=== PATIENT | male | born 1960 | race Caucasian/White ===

== ENCOUNTER → 2016-11-03 | Outpatient (CLI) | payer BC, OTHER ==
[2016-11-03 13:26] LABS: COMPLETE YES; HEMATOCRIT 37.9 % (42-52); IG% 0.2 %; LYMPH % 31.3 %; LYMPH ABS # 1.47 K/uL (1.2-3.4); MEAN CELL VOLUME 92.4 fL (80-100); MEAN CORPUSCULAR HEMOGLOBIN 30.5 pg (25-34); MEAN PLATELET VOLUME 10.4 fL (7.4-10.4); MONO % 11.3 %; NEUT % 54.2 %; PLATELET COUNT 198 K/uL (130-400)
[2016-11-03 13:29] LABS: ALT/SGPT 25 U/L (12-78); BLOOD UREA NITROGEN 18 mg/dl (7-18); BUN/CREATININE RATIO 15.3 (10-20); CARBON DIOXIDE 29 mmol/L (21-32); CHLORIDE 106 mmol/L (98-107); CHOLESTEROL 180 mg/dl (0-200); GLUCOSE 89 mg/dl (70-99); POTASSIUM 4.3 mmol/L (3.5-5.1); SODIUM 139 mmol/L (136-145)
[2016-11-03 13:34] LABS: HDL CHOLESTEROL 61 mg/dl; TOTAL IRON BINDING CAPACITY 317 mcg/dl (250-450); TRIGLYCERIDES 172 mg/dl (0-150); VERY LOW DENSITY LIPOPROT CALC 34 mg/dl
== END | disposition home or self-care (01) ==
LOC: C.LABMFLN 07:49
PROVIDERS: ATTEND Family Medicine
DX: I10 Essential (primary) hypertension (principal); E78.00 Pure hypercholesterolemia, unspecified; D64.9 Anemia, unspecified; Z12.5 Encounter for screening for malignant neoplasm of prostate

== ENCOUNTER → 2017-05-15 | Outpatient (CLI) | payer BC ==
[~2017-05-15] MED LIST: OPTIRAY 320 IV PRN
--- NOTE | 2017-05-15 10:13 | DIAGNOSTIC IMAGING REPORT ---
CT ANGIOGRAM OF THE CHEST CLINICAL HISTORY: Thoracic aortic aneurysm. COMPARISON STUDY: Chest CT scans dated 05/13/2016 and 05/22/2013. TECHNIQUE: Following the IV administration of 116 cc of Optiray 320, CT angiogram of the chest was performed from the thoracic inlet to the upper abdomen utilizing the dissection protocol. Images are reviewed in the axial, sagittal, and coronal planes. 3-D MIPS images are created and assessed. IV contrast was administered without complication. A dose lowering technique was utilized adhering to the principles of ALARA. CT DOSE: 623.82 mGy.cm FINDINGS: Thyroid: Imaged portions of the thyroid gland are normal in size and attenuation. Thoracic aorta: Findings are consistent with previous aortic valve surgery. There is mild to moderate atherosclerotic calcification of the thoracic aorta. There is aneurysmal dilatation of the ascending thoracic aorta. This is unchanged from previous and measures up to 4.8 cm in diameter. The arch is normal in caliber and measures up to 2.8 cm. The descending thoracic aorta is normal in caliber and measures up to 2.6 cm. The aortic arch demonstrates standard 3-vessel anatomy. No dissection is seen. The arch vessels are widely patent. Pulmonary vasculature: The main pulmonary arteries are dilated suggesting pulmonary artery hypertension. There is no evidence of pulmonary blistering main, lobar, or segmental pulmonary arteries. Heart: The patient is status post midline sternotomy. The heart is enlarged and without pericardial effusion. There are scattered coronary artery calcifications. Lungs and pleural spaces: Dizziness change is noted. No airspace consolidation or pleural effusion is identified. Mild diffuse peribronchial thickening suggests reactive airway disease. A calcific granuloma in the right lower lobe is unchanged. The trachea and central airways are patent are clear. Mediastinum: There is no mediastinal lymphadenopathy. Christy: Clear. Axillae: There is no axillary lymphadenopathy. Upper abdomen: A 1.9 cm cyst is noted in the right hepatic lobe. Additional subcentimeter hypodensity in the right hepatic lobe also likely represents a cyst but is too small for definitive characterization. Nodularity of the hepatic surface contour suggests early change of cirrhosis. Cortical scarring is noted in the left kidney. The gallbladder is surgically absent. A small hiatal hernia is identified. Calcified splenic granulomas are observed. There is new complete fatty atrophy of the pancreas. Skeletal structures: The skeletal structures are osteopenic. Degenerative change is noted throughout the thoracic spine. No lytic or blastic bony lesions are seen. IMPRESSION: 1. There is unchanged appearance of a 4.8 cm aneurysm of the ascending thoracic aorta as compared to the 05/13/2016 examination. 2. Cardiomegaly and emphysema. 3. No airspace consolidation or pleural effusion is identified. Diffuse peribronchial thickening suggests reactive airway disease. Clinical correlation will be required. 4. Nodularity of the hepatic surface contour suggests early change of cirrhosis. Electronically signed by: Rick Granados M.D. 05/15/2017 10:12 AM Dictated Date/Time: 05/15/2017 10:00 AM
== END | disposition home or self-care (01) ==
LOC: C.CTS 09:13
PROVIDERS: ATTEND Internal Medicine Cardiovascular Disease
DX: I71.2 Thoracic aortic aneurysm, without rupture (principal); I51.7 Cardiomegaly; J43.9 Emphysema, unspecified; R91.8 Other nonspecific abnormal finding of lung field; R93.2 Abnormal findings on diagnostic imaging of liver and biliary tract

== ENCOUNTER → 2017-12-29 | Outpatient (CLI) | payer BC ==
[2017-12-29 13:01] LABS: HEMATOCRIT 34.7 % (42-52); HEMOGLOBIN 11.8 g/dL (14.0-18.0)
[2017-12-29 13:37] LABS: ALT/SGPT 27 U/L (12-78); BLOOD UREA NITROGEN 31 mg/dl (7-18); CALCIUM 8.7 mg/dl (8.5-10.1); CARBON DIOXIDE 27 mmol/L (21-32); CHOLESTEROL 137 mg/dl (0-200); CREATININE 1.52 mg/dl (0.60-1.40); GLUCOSE 90 mg/dl (70-99); LDL CHOLESTEROL (DIRECT) 70 mg/dl; POTASSIUM 4.5 mmol/L (3.5-5.1); SODIUM 139 mmol/L (136-145)
== END | disposition home or self-care (01) ==
LOC: C.LABMFLN 08:13
PROVIDERS: ATTEND Family Medicine
DX: I10 Essential (primary) hypertension (principal); Z87.74 Personal history of (corrected) congenital malformations of heart and circulatory system; E78.00 Pure hypercholesterolemia, unspecified; D64.9 Anemia, unspecified